=== PATIENT | male | born 1950 | race Caucasian/White ===

== ENCOUNTER 2017-02-07 22:05 | Emergency (ER) | payer OTHER ==
[~2017-02-07] VITALS: Ht 165.1 cm; Wt 81.6 kg
--- NOTE | 2017-02-07 22:35 | NUR ---
DR LEYVA IS AT THE BEDSIDE.
--- NOTE | 2017-02-07 22:58 | NUR ---
PT LEFT FOR CT VIA GURNEY.
--- NOTE | 2017-02-07 23:12 | NUR ---
PT RETURNED FROM CT VIA [facility].
[2017-02-08] MEDS ORDERED: KETOROLAC TROMETHAMINE INJ 30 MG/ML VIAL ONE (00:38)
--- NOTE | 2017-02-08 00:49 | NUR ---
Patient discharged to home in stable condition. Written and verbal after care instructions given. Patient verbalizes understanding of instruction AND RX. PT AMBULATED OUT WITH A STEADY GAIT. PT TO F/U WITH [employer] IN THE AM. PT IS AWARE. PT REC'D A COPY OF ALL IMAGING FINDINGS. VSS
[2017-02-08 00:53] VITALS: BP 128/65
[2017-02-08] MEDS ORDERED: KETOROLAC TROMETHAMINE INJ 60 MG/2 ML VIAL IM ONE (01:00)
== END 2017-02-08 00:54 | disposition home or self-care (01) ==
LOC: ER 22:09
DX: S32.019A Unspecified fracture of first lumbar vertebra, initial encounter for closed fracture (principal); R51 Headache; W18.39XA Other fall on same level, initial encounter; Y93.89 Activity, other specified; Y92.89 Other specified places as the place of occurrence of the external cause; Y99.8 Other external cause status
CPT/HCPCS: 70450-TC; 72131-TC; A4606; J1885; Z7610

== ENCOUNTER 2017-02-18 23:18 | Emergency (ER) | payer OTHER ==
[~2017-02-18] VITALS: Ht 167.6 cm; Wt 82.6 kg
[2017-02-18 23:20] VITALS: BP 135/79
[2017-02-19] MEDS ORDERED: HYDROCODONE/APAP 10/325MG 1 EA TABLET ONE (00:42)
[2017-02-19] MEDS ORDERED: IBUPROFEN 600 MG TABLET PO ONE ×2 (00:42→01:00)
--- NOTE | 2017-02-19 00:51 | NUR ---
Patient discharged to home in stable condition. Written and verbal after care instructions given. Patient verbalizes understanding of instruction. ambulatory with a steady gait noted. advice pt not to drive or operate any machinery due to pt was given narcotic medicine. pt verbalize understanding.
[2017-02-19] MEDS ORDERED: HYDROCODONE/APAP 10/325MG 1 EA TABLET PO ONE (01:00)
== END 2017-02-19 00:53 | disposition home or self-care (01) ==
LOC: ER 23:20
DX: M54.5 Low back pain (principal)
CPT/HCPCS: 99283; A4606; Z7610